=== PATIENT | female | born 1955 | race Hispanic/Latino ===

== ENCOUNTER 2024-04-03 06:04 | Observation (INO) | payer MEDICARE ==
[2024-04-02 09:50] LABS: BASOPHILS % 0.4 % (0.0-1.0); EOSINOPHILS # (AUTO) 0.2 (0.0-0.4); EOSINOPHILS % 1.9 % (0.0-6.0); HEMATOCRIT 33.7 % (34.2-44.1); HEMOGLOBIN 9.6 g/dL (12.0-16.0); LYMPHOCYTES # (AUTO) 2.5 (1.0-3.2); LYMPHOCYTES % 31.9 % (18.0-39.1); MEAN CORPUSCULAR HEMOGLOBIN 20.3 pg (28-32); MEAN CORPUSCULAR HGB CONC 28.5 g/dL (31-35); MEAN CORPUSCULAR VOLUME 71.1 fL (81-99); MONOCYTES # (AUTO) 0.6 (0.2-0.8); MONOCYTES % 8.1 % (4.4-11.3); NEUTROPHILS # (AUTO) 4.5 (2.1-6.9); NEUTROPHILS % 57.4 % (38.7-80.0); PLATELET COUNT 320 x10e3/uL (140-360); RED BLOOD COUNT 4.74 x10e6/uL (3.6-5.1); RED CELL DISTRIBUTION WIDTH 18.6 % (11.7-14.4); WHITE BLOOD COUNT 7.81 x10e3/uL (4.8-10.8)
[2024-04-02 10:14] LABS: ANION GAP 14.1 mmol/L (8-16); CALCIUM 9.1 mg/dL (8.4-10.2); CREATININE, SERUM 0.88 mg/dL (0.57-1.11); POTASSIUM 4.1 mmol/L (3.5-5.1)
[~2024-04-03] VITALS: Ht 154.9 cm; Wt 91.6 kg
[2024-04-03] MEDS: GABAPENTIN 300 MG CAP ONE (06:03)
[~2024-04-03 06:04] MED LIST: ACETAMINOPHEN-1 EAC3 PO; ASPIRIN81 MG PO; CALCIUM ACETAT667 MG PO; FEROSUL325 MG PO; HYDROCODON-ACE1 EAC8 PO; LEVOTHYROXINE75 MCG PO; LIPITOR10 MG PO; LOSARTAN-HCTZ1 EAC2 PO; METFORMIN HCL500 MG PO
[2024-04-03] MEDS: CEFAZOLIN SODIUM 2 GM ONE (06:09)
[2024-04-03] MEDS: LACTATED RINGER'S 1,000 ML ONE (06:11)
[2024-04-03] MEDS: CELECOXIB 200 MG CAP ONE (06:11)
[2024-04-03] MEDS ORDERED: TRANEXAMIC ACID 20 ML ONE (06:58)
[2024-04-03] MEDS ORDERED: Vancomycin IV 500 MG ONE (06:58)
[2024-04-03] MEDS ORDERED: SODIUM CHLORIDE 0.9% 500ML 500 ML ONE (07:03)
[2024-04-03] MEDS ORDERED: HYDROCODONE/APAP 5MG-325MG TAB PO PRN (09:00)
[2024-04-03] MEDS ORDERED: DOCUSATE SODIUM 100 MG CAP PO PRN (09:00)
[2024-04-03] MEDS ORDERED: DIPHENHYDRAMINE HCL INJ 50 MG/ML VIAL IV PRN (09:00)
[2024-04-03] MEDS ORDERED: ONDANSETRON HCL INJ 2MG/ML 2ML 2 MG/ML VIAL IV PRN (09:00)
[2024-04-03] MEDS ORDERED: METOCLOPRAMIDE HCL 10 MG/2ML VIAL ONE (12:10)
[2024-04-03] MEDS ORDERED: SEVOFLURANE INHAL SOLN 250 ML PEN BTL ONE (12:10)
[2024-04-03] MEDS ORDERED: ACETAMINOPHEN 1000 MG/100 ML IV ONE (12:10)
[2024-04-03] MEDS ORDERED: LIDOCAINE HCL 2% LOCAL INJ 5 ML SDV VIAL INJ ONE (12:10)
[2024-04-03] MEDS ORDERED: TRANEXAMIC ACID 1,000 MG/10 ML ML ONE (12:10)
[2024-04-03] MEDS ORDERED: PROPOFOL IV EMULSION 10 MG/ML 20 ML VIAL ONE (12:10)
[2024-04-03] MEDS ORDERED: ONDANSETRON HCL INJ 2MG/ML 2ML 2 MG/ML VIAL ONE (12:10)
[2024-04-03] MEDS ORDERED: MIDAZOLAM HCL 2 MG/2 ML VIAL ONE (12:55)
[2024-04-03] MEDS ORDERED: FENTANYL CITRATE/PF 100MCG/2 ML INJ ONE (12:55)
[2024-04-03] MEDS: ROPIVACAINE 246.25 MG, EPINEPHRINE HCL 1:1000 1ML 0.5 MG, CLONIDINE HCL 0.08 MG, KETORO... INJ ONE (17:24)
[2024-04-03] MEDS: DEXAMETHASONE SOD PHOS 10 MG/1 ML VIAL ONE (17:24)
[2024-04-03 17:30] VITALS: BP 122/62; PULSE 62; PULSE 69; RESP 18; TEMP 98; O2SAT 100
[2024-04-03] MEDS: SODIUM CHLORIDE 0.9% 1000ML 1,000 ML IV SCH (17:35)
[2024-04-03] MEDS: CELECOXIB 200 MG CAP PO SCH (17:35)
[2024-04-03] MEDS ORDERED: EPINEPHRINE HCL 1:1000 1ML 1 MG/ML AMP ONE (17:57)
[2024-04-03] MEDS ORDERED: ROPIVACAINE 0.5% 5 MG/ML 30 ML SDV ONE (17:57)
[2024-04-03 18:03] VITALS: BP 122/62; PULSE 62; RESP 18; TEMP 98; O2SAT 100
[2024-04-03 20:00] VITALS: BP 139/62; PULSE 75; RESP 20; TEMP 98.1; O2SAT 100
[2024-04-03] MEDS: ASPIRIN 325 MG TAB PO SCH (21:18)
[2024-04-04] VITALS: BP 131/59; PULSE 69; RESP 18; TEMP 97.7; O2SAT 99
[2024-04-04 04:00] VITALS: BP 106/58; PULSE 68; RESP 18; TEMP 97.7; O2SAT 100
[2024-04-04 05:03] LABS: BASOPHILS % 0.1 % (0.0-1.0); EOSINOPHILS % 0.1 % (0.0-6.0); HEMATOCRIT 26.6 % (34.2-44.1); LYMPHOCYTES # (AUTO) 1.6 (1.0-3.2); LYMPHOCYTES % 13.5 % (18.0-39.1); MEAN CORPUSCULAR HEMOGLOBIN 20.5 pg (28-32); MEAN CORPUSCULAR HGB CONC 28.6 g/dL (31-35); MEAN CORPUSCULAR VOLUME 71.9 fL (81-99); MONOCYTES # (AUTO) 0.8 (0.2-0.8); MONOCYTES % 6.4 % (4.4-11.3); NEUTROPHILS # (AUTO) 9.6 (2.1-6.9); NEUTROPHILS % 79.3 % (38.7-80.0); PLATELET COUNT 279 x10e3/uL (140-360); RED CELL DISTRIBUTION WIDTH 18.5 % (11.7-14.4); WHITE BLOOD COUNT 12.09 x10e3/uL (4.8-10.8)
[2024-04-04 05:24] LABS: HEMOGLOBIN 7.6 g/dL (12.0-16.0)
[2024-04-04 07:44] LABS: ANION GAP 12.2 mmol/L (8-16); CALCIUM 8.3 mg/dL (8.4-10.2); CREATININE, SERUM 0.66 mg/dL (0.57-1.11); POTASSIUM 4.2 mmol/L (3.5-5.1)
[2024-04-04 08:00] VITALS: BP 125/59; PULSE 75; RESP 18; TEMP 97.6; O2SAT 98
[2024-04-04] MEDS ORDERED: ACETAMINOPHEN 1000 MG/100 ML IV PRN (09:00)
[2024-04-04] MEDS: HYDROCODONE/APAP 7.5MG-325MG 1 EA TAB PO PRN (10:02)
[2024-04-04 10:35] LABS: LYMPHOCYTES % (MANUAL) 22 % (19-48); MONOCYTES % (MANUAL) 3 % (3.4-9.0); NEUTROPHILS % (MANUAL) 75 % (40-74); PLATELET ESTIMATE ADEQUATE; PLATELET MORPHOLOGY COMMENT NORMAL; RBC MORPHOLOGY COMMENT NORMAL
[2024-04-04 12:00] VITALS: BP 128/64; PULSE 68; RESP 18; TEMP 98; O2SAT 98
== END 2024-04-04 15:15 | disposition home health service (06) ==
LOC: OR 06:04 → PACU V 14:25 → IMCU 17:00
PROVIDERS: ADMIT Specialist; ATTEND Specialist
DX: M17.11 Unilateral primary osteoarthritis, right knee (principal); I10 Essential (primary) hypertension; E11.9 Type 2 diabetes mellitus without complications; Z79.84 Long term (current) use of oral hypoglycemic drugs; E78.2 Mixed hyperlipidemia; E66.9 Obesity, unspecified; Z68.38 Body mass index [BMI] 38.0-38.9, adult; E03.9 Hypothyroidism, unspecified; Z96.641 Presence of right artificial hip joint; R94.31 Abnormal electrocardiogram [ECG] [EKG]; Z01.810 Encounter for preprocedural cardiovascular examination; Z01.812 Encounter for preprocedural laboratory examination; Z79.899 Other long term (current) drug therapy; Z79.82 Long term (current) use of aspirin
CPT/HCPCS: 27447; 36415 ×2; 73560; 80048 ×2; 82948; 85025 ×2; 86850; 86900; 93005; 97116 ×2; 97161; 97530 ×2; 99252; C1713 ×2; C1776 ×4; G0378 ×2; J0131; J0171; J0690 ×2; J1100; J1885; J2001; J2250; J2405; J2704; J2765; J2795; J3010; J3370; J7030 ×2; J7040; J7121